=== PATIENT | female | born 1980 | race Caucasian/White ===

== ENCOUNTER 2017-08-03 17:45 | Emergency (ER) | payer MEDICAID ==
[2017-08-03 19:33] LABS: URINE BLOOD (Dip) POC 3+ (NEGATIVE); URINE GLUCOSE (Dip) POC Negative (NEGATIVE); URINE KETONES (Dip) POC Negative (NEGATIVE); URINE LEUKOCYTE EST (Dip) POC Trace (NEGATIVE); URINE NITRITE (Dip) POC Negative (NEGATIVE); URINE TOTAL PROTEIN POC Negative (NEGATIVE)
[2017-08-03 20:10] LABS: ADD MAN DIFF? NO
[2017-08-03 20:12] LABS: BASOPHIL # 0.1 10^3/ul (0.0-0.1); BASOPHILS % 0.9 % (0.0-2.0); EOSINOPHILS # 0.2 10^3/ul (0.0-0.5); EOSINOPHILS % 1.9 % (0.0-7.0); HEMATOCRIT 38.5 % (37.0-47.0); HEMOGLOBIN 13.2 g/dl (12.0-16.0); LYMPHOCYTES # 3.9 10^3/ul (0.8-2.9); LYMPHOCYTES % 35.1 % (15.0-51.0); MEAN CORPUSCULAR HEMOGLOBIN 30.9 pg (29.0-33.0); MEAN CORPUSCULAR HGB CONC 34.3 g/dl (32.0-37.0); MEAN CORPUSCULAR VOLUME 90.2 fl (82.0-101.0); MEAN PLATELET VOLUME 9.5 fl (7.4-10.4); MONOCYTE # 0.8 10^3/ul (0.3-0.9); NEUTROPHIL # 6.1 10^3/ul (1.6-7.5); NEUTROPHILS % 54.7 % (39.0-77.0); PLATELET COUNT 394 10^3/UL (140-415); RED BLOOD COUNT 4.27 10^6/ul (4.20-5.40); RED CELL DISTRIBUTION WIDTH 12.6 % (11.5-14.5)
[2017-08-03 20:12] LABS: WHITE BLOOD COUNT 11.2 10^3/ul (4.8-10.8)
[2017-08-03 20:34] LABS: ANION GAP 19 (8-16); BLOOD UREA NITROGEN 17 mg/dl (7-20); CALCIUM 9.1 mg/dl (8.4-10.2); CARBON DIOXIDE 25 mmol/L (21-31); CHLORIDE 103 mmol/L (97-110); CREATININE 0.74 mg/dl (0.44-1.00); GLUCOSE 87 mg/dl (70-220); POTASSIUM 4.2 mmol/L (3.5-5.1); SODIUM 143 mmol/L (135-144)
== END 2017-08-03 23:48 | disposition home or self-care (01) ==
LOC: FTE 17:45
DX: N93.8 Other specified abnormal uterine and vaginal bleeding (principal); R10.2 Pelvic and perineal pain
CPT/HCPCS: 76830; 76856; 80048; 81003; 84702; 84703; 85025; 87086; 99284-25

== ENCOUNTER 2019-03-03 19:10 | Emergency (ER) | payer MEDICAID ==
[2019-03-03] MEDS: SOD CHLORIDE 0.9% 1,000 ML IV (19:27)
[2019-03-03] MEDS: DIPHENHYDRAMINE 50 MG INJ IV (19:27)
[2019-03-03] MEDS: METHYLPREDNISOLONE 125 MG INJ IV (19:27)
[2019-03-03] MEDS: FAMOTIDINE 20 MG INJ IV (19:27)
== END 2019-03-03 22:18 | disposition home or self-care (01) ==
LOC: FTE 19:10
DX: T78.2XXA Anaphylactic shock, unspecified, initial encounter (principal)
CPT/HCPCS: 96374; 96375; 99284-25